=== PATIENT | female | born 1965 | race African-American/Black ===

== ENCOUNTER 2023-03-22 08:03 | Emergency (ER) | payer MEDICAID ==
[~2023-03-22] VITALS: Ht 152.4 cm; Wt 59.0 kg
[2023-03-22 08:09] VITALS: O2SAT 99
[2023-03-22 08:42] LABS: HEMATOCRIT 34.9 % (36.0-48.0); HEMOGLOBIN 11.8 g/dL (12.0-16.0); MEAN CORPUSCULAR HEMOGLOBIN 30.8 pg (28.0-32.0); MEAN CORPUSCULAR HGB CONC 33.8 g/dL (31.0-37.0); MEAN CORPUSCULAR VOLUME 91.2 fL (81.0-99.0); PLATELET 269 x1000/uL (130-400); RED BLOOD CELL COUNT 3.83 mill/uL (4.2-5.4); RED CELL DISTRIBUTION WIDTH 13.7 % (11.6-14.6); WHITE BLOOD COUNT 5.9 x1000/uL (4.5-11.0)
[2023-03-22 09:17] LABS: ALANINE AMINOTRANSFERASE < 7 IU/L (10-49); ALBUMIN 3.9 g/dL (3.2-4.8); ASPARTATE AMINOTRANSFERASE 18 IU/L (<34); BILIRUBIN TOTAL 0.6 mg/dL (0.1-1.0); CALCIUM 8.8 mg/dL (8.7-10.4); CARBON DIOXIDE 31 mEq/L (21-32); CHLORIDE 105 mEq/L (98-107); CREATININE 0.6 mg/dL (0.6-1.0); GLUCOSE 96 mg/dL (70-105); POTASSIUM 3.9 mEq/L (3.5-5.1); PROTEIN TOTAL 6.7 g/dL (6.0-8.3); SODIUM 142 mEq/L (136-145); UREA NITROGEN BLOOD 10 mg/dL (9-23)
[2023-03-22] MEDS ORDERED: LOPERAMIDE HCL 2MG CAPSULE PO ONE (09:45)
[2023-03-22] MEDS ORDERED: KETOROLAC 60MG/2ML VIAL IM ONE (09:45)
[2023-03-22] MEDS ORDERED: SODIUM CHLORIDE 0.9% 1,000 ML IV ONE (09:45)
[2023-03-22] MEDS ORDERED: ONDANSETRON 4MG ODT PO ONE (09:45)
[2023-03-22] MEDS ORDERED: IBUP-2029 MT (12:01)
[2023-03-22] MEDS ORDERED: ONDA4TAB11 PO (12:01)
[2023-03-22] MEDS ORDERED: IMOD MT (12:01)
[2023-03-22] MEDS ORDERED: ONDANSETRON 4MG ODT PO NR (12:30)
[2023-03-22] MEDS ORDERED: KETOROLAC 30MG/ML VIAL IM NR (12:30)
[2023-03-22] MEDS ORDERED: LOPERAMIDE HCL 2MG CAPSULE PO NR (12:30)
[2023-03-22 13:00] VITALS: BP 127/78; PULSE 89; RESP 16; TEMP 98
[2023-03-22 13:00] LABS: CLARITY URINE CLEAR (CLEAR); COLOR URINE YELLOW (YELLOW); GLUCOSE URINE NEGATIVE (NEGATIVE); KETONES URINE NEGATIVE (NEGATIVE); PH URINE 7.5 (4.5-8.0); PROTEIN URINE NEGATIVE (NEGATIVE); SPECIFIC GRAVITY URINE 1.015 (1.005-1.030)
[2023-03-22 13:01] LABS: LEUKOCYTE ESTERASE URINE NEGATIVE (NEGATIVE); NITRITE URINE NEGATIVE (NEGATIVE); OCCULT BLOOD URINE NEGATIVE (NEGATIVE); UROBILINOGEN URINE 0.2 E.U./dL (0.2-1.0)
== END 2023-03-22 13:02 | disposition home or self-care (01) ==
LOC: ER 08:03
DX: K52.9 Noninfective gastroenteritis and colitis, unspecified (principal); B34.9 Viral infection, unspecified
CPT/HCPCS: 80053; 81003; 83690; 85027; 36415; 96360; 96372; 99283; Q0162; J1885; J7030; Z7610 ×3

== ENCOUNTER 2023-04-05 10:23 | Emergency (ER) | payer MEDICAID ==
[~2023-04-05] VITALS: Ht 152.4 cm; Wt 56.0 kg
[~2023-04-05 10:23] MED LIST: IBUP-2029 MT; IMOD MT; ONDA4TAB11 PO
[2023-04-05 10:26] VITALS: O2SAT 100
[2023-04-05] MEDS: IBUPROFEN 600MG TABLET PO STA (12:26)
[2023-04-05] MEDS ORDERED: T3 PO (12:34)
[2023-04-05 12:39] VITALS: BP 157/115
[2023-04-05] MEDS: ACETAMINOPHEN WITH CODEINE 300/30MG TABLET PO STA (12:39)
[2023-04-05 13:04] VITALS: PULSE 89; RESP 20; TEMP 98.2
== END 2023-04-05 13:06 | disposition home or self-care (01) ==
LOC: ER 10:23
DX: S52.501A Unspecified fracture of the lower end of right radius, initial encounter for closed fracture (principal); Z88.6 Allergy status to analgesic agent; Z88.5 Allergy status to narcotic agent; W18.30XA Fall on same level, unspecified, initial encounter; Y93.89 Activity, other specified; Y92.89 Other specified places as the place of occurrence of the external cause; Y99.8 Other external cause status
CPT/HCPCS: 29125; 73110; 73130; 99284; A4565